=== PATIENT | male | born 1940 ===

== ENCOUNTER 2017-12-07 10:23 | Outpatient (CLI) | payer OTHER ==
[2017-12-07] MEDS ORDERED: CARVEDILOL6.25 MG PO (13:27)
[2017-12-07] MEDS ORDERED: PROVASTATIN PO (13:28)
[2017-12-07] MEDS ORDERED: LISINOPRIL5 MG PO (13:28)
[2017-12-07] MEDS ORDERED: PREDNISONE10 MG PO (13:29)
[2017-12-07] MEDS ORDERED: [UNRECOGNIZED DRUG - OTHER] PO (13:29)
[2017-12-07] MEDS ORDERED: OMEPRAZOLE20 M1 PO (13:30)
== END 2017-12-07 17:16 | disposition home or self-care (01) ==
LOC: NUCLEAR 10:23
DX: I25.10 Atherosclerotic heart disease of native coronary artery without angina pectoris (principal); Z01.810 Encounter for preprocedural cardiovascular examination

== ENCOUNTER 2017-12-07 11:00 | Inpatient (IN) | payer OTHER ==
[~2017-12-07] VITALS: Ht 165.1 cm; Wt 58.5 kg
[2017-12-07] MEDS ORDERED: CARVEDILOL6.25 MG PO (13:27)
[2017-12-07] MEDS ORDERED: PROVASTATIN PO (13:28)
[2017-12-07] MEDS ORDERED: LISINOPRIL5 MG PO (13:28)
[2017-12-07] MEDS ORDERED: [UNRECOGNIZED DRUG - OTHER] PO (13:29)
[2017-12-07] MEDS ORDERED: PREDNISONE10 MG PO (13:29)
[2017-12-07] MEDS ORDERED: OMEPRAZOLE20 M1 PO (13:30)
== END 2017-12-22 13:58 | disposition expired | DRG 330 ==
LOC: SURH 12-15 09:10 → O/R 12-15 09:10 → SURG 12-15 11:00 → SURH 12-15 17:36
PROVIDERS: Colon & Rectal Surgery
PROC: 0DTP4ZZ Resection of Rectum, Percutaneous Endoscopic Approach (ICD-10-PCS; 2017-12-15)
PROC: 07TC4ZZ Resection of Pelvis Lymphatic, Percutaneous Endoscopic Approach (ICD-10-PCS; 2017-12-15)
PROC: 0WQF4ZZ Repair Abdominal Wall, Percutaneous Endoscopic Approach (ICD-10-PCS; 2017-12-15)
PROC: 0DJD8ZZ Inspection of Lower Intestinal Tract, Via Natural or Artificial Opening Endoscopic (ICD-10-PCS; 2017-12-15)
PROC: 3E0F7GC Introduction of Other Therapeutic Substance into Respiratory Tract, Via Natural or Artificial Opening (ICD-10-PCS; 2017-12-15)
PROC: 0DTN4ZZ Resection of Sigmoid Colon, Percutaneous Endoscopic Approach (ICD-10-PCS; principal; 2017-12-15 14:30)
PROC: B246ZZZ Ultrasonography of Right and Left Heart (ICD-10-PCS; 2017-12-17)
DX: D12.7 Benign neoplasm of rectosigmoid junction (principal); I50.22 Chronic systolic (congestive) heart failure; I97.121 Postprocedural cardiac arrest following other surgery; R59.0 Localized enlarged lymph nodes; K43.9 Ventral hernia without obstruction or gangrene; I25.10 Atherosclerotic heart disease of native coronary artery without angina pectoris; I25.2 Old myocardial infarction; I45.6 Pre-excitation syndrome; Z98.61 Coronary angioplasty status; I11.0 Hypertensive heart disease with heart failure; I34.0 Nonrheumatic mitral (valve) insufficiency